=== PATIENT | female | born 1980 | race Caucasian/White ===

== ENCOUNTER 2021-10-12 16:02 | Emergency (ER) | payer BC, OTHER ==
[~2021-10-12] VITALS: Ht 154.9 cm; Wt 88.5 kg
--- NOTE | 2021-10-12 16:05 | NUR ---
Pt brought by self, A&Ox4, pt presents to ER with R leg pain/ swelling, denies trauma , skin pink and warm, cap refill <3, VSS
[2021-10-12 16:14] VITALS: BP_SYST 122
--- NOTE | 2021-10-12 16:20 | NUR ---
Dr urban evaluating patient at bedside
[2021-10-12] MEDS ORDERED: IBUP-1969 PO (17:24)
[2021-10-12] MEDS ORDERED: METH-634 PO (17:44)
[2021-10-12] MEDS ORDERED: ACET-2634 PO (17:44)
[2021-10-12 17:58] VITALS: BP_SYST 122
--- NOTE | 2021-10-12 17:58 | NUR ---
Pt refusing to take Ibuprofen, Tylenol or Robaxin, states she will take Soma given by PCP
== END 2021-10-12 17:58 | disposition home or self-care (01) ==
LOC: SED 16:02
DX: R22.41 Localized swelling, mass and lump, right lower limb (principal); Z88.1 Allergy status to other antibiotic agents; Z79.899 Other long term (current) drug therapy
CPT/HCPCS: 93971; 99284